=== PATIENT | female | born 1950 | race Caucasian/White ===

== ENCOUNTER 2016-05-02 13:42 | Emergency (ER) | payer MEDICARE, OTHER ==
[~2016-05-02] VITALS: Ht 154.9 cm; Wt 88.6 kg
[~2016-05-02 13:42] MED LIST: NAPROSYN375 MG PO; PERCOCET 5/321 UDTAB PO; PRILOSEC 20MG20 MG PO
[2016-05-02 14:00] VITALS: BP 122/88; TEMP 97.9
[2016-05-02] MEDS ORDERED: LEXAPRO20 MG PO (14:27)
[2016-05-02] MEDS ORDERED: LIPITOR 10MG10 MG PO (14:28)
[2016-05-02] MEDS ORDERED: PRILOTC (14:30)
[2016-05-02 14:39] LABS: BASO # 0.1 (0.0-0.2); EOS # 0.1 (0.0-0.7); EOS % 1.4 % (0-4.0); GRAN # 4.7 (1.4-6.5); GRAN % 67.6 % (42.2-75.2); HEMATOCRIT 40.4 % (37.0-47.0); HEMOGLOBIN 13.4 g/dl (12.5-16.0); LYMPH # 1.5 (1.2-3.4); LYMPH % 21.5 % (20.0-51.0); MEAN CELL VOLUME 87 fl (80.0-100.0); MEAN CORPUSCULAR HEMOGLOBIN 29 pg (27.0-31.0); MEAN CORPUSCULAR HGB CONC 33 g/dl (33.0-37.0); MEAN PLATELET VOLUME 13.1 fl (7.4-10.4); MONO # 0.6 (0.1-0.6); MONO % 8.4 % (1.7-9.3); PLATELET COUNT 197 K/mm3 (130-400); RED BLOOD COUNT 4.67 M/mm3 (4.10-5.30)
[2016-05-02 14:41] LABS: INR 1.1 (0.8-3.0)
[2016-05-02 14:44] LABS: PARTIAL THROMBOPLASTIN TIME 28.2 SECONDS (26.0-37.0)
[2016-05-02 15:00] LABS: ADJUSTED CALCIUM 9.6 mg/dL (8.4-10.2); ALANINE AMINOTRANSFERASE 37 U/L (9-52); ALBUMIN 3.8 gm/dL (3.5-5.0); ALKALINE PHOSPHATASE 78 U/L (50-136); ANION GAP 10 mmol/L (7-16); BLOOD UREA NITROGEN 14 mg/dL (7-17); CALCIUM 9.4 mg/dL (8.4-10.2); CARBON DIOXIDE 29 mmol/L (22-30); CHLORIDE 101 mmol/L (98-107); CREATININE, serum 0.97 mg/dL (0.52-1.25); GLUCOSE 127 mg/dL (74-106); POTASSIUM 3.5 mmol/L (3.4-5.0); SODIUM 140 mmol/L (137-145); TOTAL PROTEIN 6.9 gm/dL (6.4-8.2)
[2016-05-02 15:21] LABS: TROPONIN-I < 0.012 ng/mL (0.000-0.034)
[2016-05-02 16:48] VITALS: PULSE 74
== END 2016-05-02 16:50 | disposition short-term general hospital (02) ==
LOC: COL.ER 13:42
PROVIDERS: Family Medicine
DX: R07.9 Chest pain, unspecified (principal)
CPT/HCPCS: J1650

== ENCOUNTER → 2016-09-21 | Outpatient (CLI) | payer MEDICARE, OTHER ==
[~2016-09-21] MED LIST changes: +LEXAPRO20 MG PO; +LIPITOR 10MG10 MG PO; +PRILOTC
== END ==
LOC: MHCPAIN 11:44
DX: G89.29 Other chronic pain (principal); M47.812 Spondylosis without myelopathy or radiculopathy, cervical region; M54.81 Occipital neuralgia; R51 Headache
CPT/HCPCS: G0463